=== PATIENT | male | born 1990 | race Two or more races ===

== ENCOUNTER 2021-02-22 23:34 | Emergency (ER) | payer SELFPAY ==
[~2021-02-22] VITALS: Ht 188 cm; Wt 76.3 kg
[2021-02-22 23:34] VITALS: BP 143/83
--- NOTE | 2021-02-22 23:57 | PHYS DOC ---
Past History Alcohol Use: None General Adult EDM: Chief Complaint: ANIMAL BITE HPI: HPI: 30-year-old male presents with dog bite to the face. The patient was bit by his own dog. He was trying to get it to go outside and got down near the dog's face and the dog bit his nose. The patient is not sure if the bite went all the way through the cartilage and opened up his right nare or not. He had immediate bleeding. The bleeding has stopped at this time. The patient's tetanus is not up-to-date. He denies any other injuries or complaints at this time. Review of Systems: Review of Systems: Constitutional: Denies fever or chills Eyes: Denies change in visual acuity HENT: Denies nasal congestion or sore throat Respiratory: Denies cough or shortness of breath Cardiovascular: Denies chest pain or edema GI: Denies abdominal pain, nausea, vomiting, bloody stools or diarrhea : Denies dysuria Musculoskeletal: Denies back pain or joint pain Integument: Dog bite nose Neurologic: Denies headache, focal weakness or sensory changes Endocrine: Denies polyuria or polydipsia Lymphatic: Denies swollen glands Psychiatric: Denies depression or anxiety Allergies: Allergies: Allergies Coded Allergies Type Severity Reaction Last Updated Verified No Known Drug Allergies 02/22/21 No Physical Exam: PE: Constitutional: Well developed, well nourished, no acute distress, non-toxic appearance. [] HENT: Normocephalic, bilateral external ears normal, oropharynx moist, no oral exudates, nose with a laceration of the right nare, 2 other shallow puncture turner near the laceration. [] Eyes: PERRLA, EOMI, conjunctiva normal, no discharge. [] Neck: Normal range of motion, no tenderness, supple, no stridor. [] Cardiovascular: Heart rate regular rhythm, no murmur [] Lungs & Thorax: Bilateral breath sounds clear to auscultation [] Abdomen: Bowel sounds normal, soft, no tenderness, no masses, no pulsatile masses. [] Skin: Warm, dry, no erythema, no rash. [] Back: No tenderness, no CVA tenderness. [] Extremities: No tenderness, no cyanosis, no clubbing, ROM intact, no edema. [] Neurologic: Alert and oriented X 3, normal motor function, normal sensory f unction, no focal deficits noted. [] Psychologic: Affect normal, judgement normal, mood normal. [] EKG: EKG: [] Radiology/Procedures: Radiology/Procedures: [] Heart Score: C/O Chest Pain: N/A Risk Factors: Risk Factors: DM, Current or recent (<one month) smoker, HTN, HLP, family history of CAD, obesity. Risk Scores: Score 0 - 3: 2.5% MACE over next 6 weeks - Discharge Home Score 4 - 6: 20.3% MACE over next 6 weeks - Admit for Clinical Observation Score 7 - 10: 72.7% MACE over next 6 weeks - Early Invasive Strategies Course & Med Decision Making: Course & Med Decision Making Pertinent Labs and Imaging studies reviewed. (See chart for details) The patient's nasal laceration appeared to be superficial. There was good skin approximation so I reinforced the area with tissue adhesive (Dermabond). No sutures were necessary. The patient's tetanus was updated in the ED. I will discharge her with Augmentin for 7 days and give the first dose in the ED. He is stable for discharge at this time. [] Dragon Disclaimer: Dragon Disclaimer: This electronic medical record was generated, in whole or in part, using a voice recognition dictation system. Laceration Repair Lac Repair Indication: [] 3 cm nasal laceration Procedure: I obtained verbal consent from the patient for tissue adhesive repair of his right sided nasal laceration. Wound was thoroughly irrigated with normal saline under pressure. No foreign bodies were found. No gaping wound of cartilage was found. No anesthesia was used. 2 layers of tissue adhesive was placed over 80% of the wound leaving the very ends to allow for drainage from swelling. Skin was well approximated. Bleeding was controlled. Tetanus updated in the ED. The patient was placed on antibiotics. Total repaired wound length: 3 cm Other Items: None The patient tolerated the procedure well. Complications: None.. Departure Departure: Impression: Primary Impression: Dog bite of face Qualified Codes: S01.85XA - Open bite of other part of head, initial encounter; W54.0XXA - Bitten by dog, initial encounter Disposition: HOME / SELF CARE / HOMELESS Condition: IMPROVED Referrals: PCP,NO (PCP) Patient Instructions: Animal Bite, [id number] Scripts Amoxicillin/Potassium Clav (AUGMENTIN [id number] TABLET) 1 Each Tablet 1 TAB PO BID for dog bite for 7 Days, #14 TAB 0 Refills Prov: NICK MCCRAY DO 02/22/21 NICK CMCRAY DO Feb 22, 2021 23:57
[2021-02-22] MEDS ORDERED: AMOX1TAB61 PO (23:59)
[2021-02-23] MEDS: AMOXICILLIN/K CLAV 875/125MG TABLET. PO ONE (00:15)
[2021-02-23] MEDS: DIPH,PERTUSS(ACELL),TET VAC/PF 0.5 ML SYRINGE. VAX IM ONE (00:18)
== END 2021-02-23 00:22 | disposition home or self-care (01) ==
LOC: ER 23:34
DX: S01.21XA Laceration without foreign body of nose, initial encounter (principal); W54.0XXA Bitten by dog, initial encounter; Y93.89 Activity, other specified; Y92.89 Other specified places as the place of occurrence of the external cause; Y99.8 Other external cause status
CPT/HCPCS: 12013; 90471; 90715; 99283